=== PATIENT | female | born 1990 | race Caucasian/White ===

== ENCOUNTER 2024-06-18 10:46 | Emergency (ER) | payer OTHER ==
[~2024-06-18] VITALS: Ht 165.1 cm; Wt 52.2 kg
[2024-06-18 10:51] VITALS: BP 98/58; TEMP 97.8
[2024-06-18] MEDS ORDERED: CIPR7.5D9 RIGHT EAR (11:04)
[2024-06-18] MEDS ORDERED: AMOX-427 PO (11:04)
[2024-06-18 11:06] VITALS: O2SAT 99
== END 2024-06-18 11:11 | disposition home or self-care (01) ==
LOC: ER 10:50
DX: H60.91 Unspecified otitis externa, right ear (principal)